=== PATIENT | female | born 1935 | race Caucasian/White ===

== ENCOUNTER 2020-07-16 10:14 | Observation (INO) | payer OTHER, SELFPAY ==
[~2020-07-16] VITALS: Ht 154.9 cm; Wt 49.4 kg
[2020-07-16 10:17] VITALS: BP_SYST 141
[2020-07-16 10:40] LABS: BASOPHILS # (AUTO) 0.1 K/uL (0.0-0.2); BASOPHILS % (AUTO) 0.5 % (0.0-2.0); EOSINOPHILS # (AUTO) 0.1 K/uL (0.0-0.4); HEMATOCRIT 34.1 % (36-48); HEMOGLOBIN 11.5 g/dL (12.0-16.0); LYMPHOCYTES # (AUTO) 1.5 K/uL (1.0-5.5); LYMPHOCYTES % (AUTO) 13.5 % (20.5-51.5); MEAN CORPUSCULAR HEMOGLOBIN 34 pg (27-31); MEAN CORPUSCULAR HGB CONC 34 % (32-36); MEAN CORPUSCULAR VOLUME 101 fL (79.0-98.0); MONOCYTES # (AUTO) 1.4 K/uL (0.0-1.0); MONOCYTES % (AUTO) 12.2 % (1.7-9.3); NEUTROPHILS # (AUTO) 8.1 K/uL (1.8-7.7); NEUTROPHILS % (AUTO) 72.8 % (40.0-70.0); PLATELET COUNT (AUTO) 195 K/uL (130-430); RED BLOOD CELL COUNT(AUTO) 3.38 MIL/uL (4.2-6.2); RED CELL DISTRIBUTION WIDTH 14.1 % (9.0-15.0); WHITE BLOOD COUNT (AUTO) 11.1 K/uL (4.8-10.8)
[2020-07-16 11:04] LABS: ANION GAP 5 (5-15); CALCIUM 8.8 mg/dL (8.4-11.0); CHLORIDE 99 mmol/L (98-107); CREATININE 1.07 mg/dL (0.55-1.30); GLUCOSE 159 mg/dL (70-99); POTASSIUM 4.6 mmol/L (3.5-5.1); SODIUM SERUM 132 mmol/L (136-145); UREA NITROGEN, BLOOD 42 mg/dL (8-21)
[2020-07-16 11:10] LABS: ALANINE AMINOTRANSFERASE 27 U/L (12-78); ALBUMIN 3.6 g/dL (3.4-4.8); ASPARTATE AMINOTRANSFERASE 30 U/L (10-37); TOTAL BILIRUBIN 1.2 mg/dL (0.0-1.0)
[2020-07-16 11:22] LABS: INR 1.1 (0.8-1.2); PROTHROMBIN TIME 10.9 SECS (9.5-12.5)
[2020-07-16 12:07] LABS: BILIRUBIN,URINE NEGATIVE (NEGATIVE); CLARITY/URINE CLEAR (CLEAR); COLOR,URINE YELLOW (YELLOW); GLUCOSE,URINE NEGATIVE (NEGATIVE); KETONES,URINE NEGATIVE (NEGATIVE); LEUKOCYTE ESTERASE ,URINE 1+ (NEGATIVE); NITRITE, URINE POSITIVE (NEGATIVE); PH,URINE 5.5 (5.0-8.0); PROTEIN URINE NEGATIVE (NEGATIVE); UROBILINOGEN,URINE 0.2 (0.2-1.0)
[2020-07-16 12:09] LABS: BLOOD, URINE TRACE (NEGATIVE)
[2020-07-16] MEDS ORDERED: cefTRIAXone 1 GM in D5W 50 ML IV ONE (12:15)
[2020-07-16 12:22] LABS: BACTERIA,URINE FEW /HPF (None Seen); MUCUS,URINE 1+ /LPF (None Seen)
[2020-07-16] MEDS ORDERED: cefTRIAXone 1 GM VIAL ONE ×2 (12:39)
[2020-07-16] MEDS ORDERED: CEL20 PO (13:24)
[2020-07-16] MEDS ORDERED: APIX2.5T PO (13:24)
[2020-07-16] MEDS ORDERED: MEMA10TA56 PO (13:24)
[2020-07-16] MEDS ORDERED: LEVO75TA7 PO (13:24)
[2020-07-16] MEDS ORDERED: LISI-600 PO (13:24)
[2020-07-16] MEDS ORDERED: GLU500 PO (13:24)
[2020-07-16] MEDS ORDERED: METO-442 PO (13:24)
[2020-07-16 13:50] VITALS: BP_SYST 125
[2020-07-16] MEDS ORDERED: FLU VACC QS2020-21(65UP)/PF 0.7 ML/SYRINGE I.M. PRN (14:15)
[2020-07-16 16:00] VITALS: BP_SYST 111
[2020-07-16] MEDS ORDERED: INSULIN REGULAR, HUMAN 100 UNITS/ML, 10 ML VIAL (humuLIN R) SUBCUT PRN (19:00)
[2020-07-16] MEDS ORDERED: DEXTROSE 50% JECT 50 ML DISP.SYRIN IVP PRN (19:00)
[2020-07-17] VITALS: BP_SYST 111
[2020-07-17] MEDS ORDERED: LEVOTHYROXINE SODIUM 0.075 MG TABLET PO SCH (06:00)
[2020-07-17 08:25] VITALS: BP_SYST 128
[2020-07-17] MEDS: metFORMIN HCL 500 MG TABLET PO SCH ×2 (08:26→18:38)
[2020-07-17] MEDS ORDERED: METOPROLOL TARTRATE 50 MG TABLET PO SCH (09:00)
[2020-07-17] MEDS ORDERED: CITALOPRAM HYDROBROMIDE 20 MG TABLET PO SCH (09:00)
[2020-07-17] MEDS ORDERED: lisinopriL 20 MG TABLET PO SCH (09:00)
[2020-07-17 12:18] VITALS: BP_SYST 109
[2020-07-17] MEDS ORDERED: HYDROcodone/ACETAMIN 5-325 MG TAB (NORCO/ VICODIN) PO PRN ×2 (15:30)
[2020-07-17 16:05] VITALS: BP_SYST 121
[2020-07-17 18:20] VITALS: BP_SYST 121
== END 2020-07-17 20:20 ==
LOC: SED 10:14 → STU 12:16
PROVIDERS: ADMIT Internal Medicine Hospice and Palliative Medicine; ATTEND Internal Medicine Hospice and Palliative Medicine
DX: S72.111A Displaced fracture of greater trochanter of right femur, initial encounter for closed fracture (principal); Z20.828 Contact with and (suspected) exposure to other viral communicable diseases; N39.0 Urinary tract infection, site not specified; E11.9 Type 2 diabetes mellitus without complications; I10 Essential (primary) hypertension; E03.9 Hypothyroidism, unspecified; I48.91 Unspecified atrial fibrillation; F03.90 Unspecified dementia, unspecified severity, without behavioral disturbance, psychotic disturbance, mood disturbance, and anxiety; R29.6 Repeated falls; W18.30XA Fall on same level, unspecified, initial encounter; Y93.89 Activity, other specified; Y92.89 Other specified places as the place of occurrence of the external cause; Z79.899 Other long term (current) drug therapy; Z86.73 Personal history of transient ischemic attack (TIA), and cerebral infarction without residual deficits; Z23 Encounter for immunization
CPT/HCPCS: 36415; 71045; 72192; 73502; 73564; 76376; 80053; 81000; 82962; 84484; 85025; 85610; 87040; 87086; 87426; 90471; 90662; 93005; 93306; 96365; 97112; 97163; 99285; G0378; J0696; J1815

== ENCOUNTER 2022-02-25 16:42 | Emergency (ER) | payer OTHER ==
[~2022-02-25] VITALS: Ht 152.4 cm; Wt 44.5 kg
[~2022-02-25 16:42] MED LIST: APIX2.5T PO; CEL20 PO; GLU500 PO; LEVO75TA7 PO; LISI20TA30 PO; MEMA10TA56 PO; METO-442 PO
[2022-02-25 17:40] VITALS: BP_SYST 140
--- NOTE | 2022-02-25 17:50 | NUR ---
RECEIVED PT AAOX4, TOGOLESE SPEAKING, DAUGHTER AT BEDSIDE. PT HAS R HEAD WOUND OPEN WITH DRY BLOOD. PT DENIES H/A. PERRLA, NEURO CKS NEGATIVE. RESP E/U. LUNG SOUNDS CTA. NO R/A. NO COUGH OR SOB NOTED. ABDOMEN SOFT, NONTENDER, NONDISTENDED. BOWEL SOUNDS ACTIVE X4, DENIES N/V/D/C. SKIN WARM, NO EDEMA. KATHIA PAIN.
--- NOTE | 2022-02-25 18:15 | NUR ---
HEAD WOUND CLEANSED WITH NS, PATTED DRY. DR. PATTEN PLACE 3 MAHI TO SITE. PT HEAD COVERED WITH ABDAPTIC AND TUBULAR KERLIX. SITE CDI.
--- NOTE | 2022-02-25 19:29 | NUR ---
ALL CARE ENDORSED TO GARY CASTRO. ALL QUESTIONS AND CONCERNS ADDRESSED.
--- NOTE | 2022-02-25 19:29 | NUR ---
Recieved report from Constance RN Pt AOX4 VSS Able to make needs known Will continue to monitor
[2022-02-25 20:17] VITALS: BP_SYST 135
== END 2022-02-25 20:16 | disposition home or self-care (01) ==
LOC: SED 16:42
DX: S01.01XA Laceration without foreign body of scalp, initial encounter (principal); I48.20 Chronic atrial fibrillation, unspecified; Z79.899 Other long term (current) drug therapy; W01.0XXA Fall on same level from slipping, tripping and stumbling without subsequent striking against object, initial encounter; Y93.89 Activity, other specified; Y92.89 Other specified places as the place of occurrence of the external cause; Y99.8 Other external cause status
CPT/HCPCS: 70450-TC; 72125-TC; 72192-TC; 76376; 99284

== ENCOUNTER 2023-01-12 08:49 | Inpatient (IN) | payer OTHER ==
[~2023-01-12] VITALS: Ht 152.4 cm; Wt 50.8 kg
[2023-01-12 08:52] VITALS: BP_SYST 52
[2023-01-12 09:35] LABS: BASOPHILS # (AUTO) 0.1 K/uL (0.0-0.2); BASOPHILS % (AUTO) 1.5 % (0.0-2.0); EOSINOPHILS # (AUTO) 0.2 K/uL (0.0-0.4); EOSINOPHILS % (AUTO) 3.4 % (0.0-4.0); HEMATOCRIT 37.6 % (36-48); HEMOGLOBIN 12.1 g/dL (12.0-16.0); LYMPHOCYTES # (AUTO) 1.1 K/uL (1.0-5.5); LYMPHOCYTES % (AUTO) 16.9 % (20.5-51.5); MEAN CORPUSCULAR HEMOGLOBIN 28 pg (27-31); MEAN CORPUSCULAR HGB CONC 32 % (32-36); MEAN CORPUSCULAR VOLUME 88 fL (79.0-98.0); MONOCYTES # (AUTO) 0.7 K/uL (0.0-1.0); MONOCYTES % (AUTO) 10.6 % (1.7-9.3); NEUTROPHILS # (AUTO) 4.4 K/uL (1.8-7.7); NEUTROPHILS % (AUTO) 67.6 % (40.0-70.0); PLATELET COUNT (AUTO) 258 K/uL (130-430); RED BLOOD CELL COUNT(AUTO) 4.26 MIL/uL (4.2-6.2); RED CELL DISTRIBUTION WIDTH 18.9 % (9.0-15.0); WHITE BLOOD COUNT (AUTO) 6.5 K/uL (4.8-10.8)
[2023-01-12 09:38] LABS: ANION GAP 11 (5-15); CALCIUM 8.8 mg/dL (8.4-11.0); CHLORIDE 101 mmol/L (98-107); GLUCOSE 129 mg/dL (70-99); UREA NITROGEN, BLOOD 39 mg/dL (8-21)
[2023-01-12 09:45] LABS: ALANINE AMINOTRANSFERASE 15 U/L (12-78); ALBUMIN 3.9 g/dL (3.4-4.8); ASPARTATE AMINOTRANSFERASE 23 U/L (10-37); TOTAL BILIRUBIN 0.8 mg/dL (0.0-1.0)
[2023-01-12] MEDS ORDERED: NACL 0.9% 1,000 ML IV ONE (10:15)
[2023-01-12 10:58] LABS: BILIRUBIN,URINE NEGATIVE (NEGATIVE); BLOOD, URINE NEGATIVE (NEGATIVE); CLARITY/URINE CLEAR (CLEAR); COLOR,URINE YELLOW (YELLOW); GLUCOSE,URINE NEGATIVE (NEGATIVE); KETONES,URINE NEGATIVE (NEGATIVE); LEUKOCYTE ESTERASE ,URINE NEGATIVE (NEGATIVE); NITRITE, URINE NEGATIVE (NEGATIVE); PH,URINE 6.5 (5.0-8.0); PROTEIN URINE NEGATIVE (NEGATIVE); UROBILINOGEN,URINE 0.2 (0.2-1.0)
[2023-01-12] MEDS ORDERED: ASPIRIN 325 MG TABLET PO ONE (11:15)
[2023-01-12] MEDS ORDERED: TRAM50TA2 (11:36)
[2023-01-12] MEDS ORDERED: MIRT7.5T11 (11:36)
[2023-01-12] MEDS ORDERED: iohexoL 350 mgI/mL, 100 ML INFUS..BTL IV ONE (12:58)
[2023-01-12] MEDS ORDERED: LORazepam 2 MG/ML VIAL IVP ONE (13:15)
[2023-01-12 16:20] VITALS: BP_SYST 151
[2023-01-12 20:00] VITALS: BP_SYST 139
[2023-01-12] MEDS: APIXABAN 2.5 MG TABLET PO SCH (21:09)
[2023-01-12] MEDS: traMADol HCL HCL 50 MG TABLET (ULTRAM) PO PRN (22:27)
[2023-01-13 00:53] VITALS: BP_SYST 124
[2023-01-13] MEDS ORDERED: QUEtiapine FUMARATE 25 MG TABLET PO ONE (01:00)
[2023-01-13 03:30] LABS: BILIRUBIN,URINE NEGATIVE (NEGATIVE); BLOOD, URINE NEGATIVE (NEGATIVE); CLARITY/URINE CLEAR (CLEAR); COLOR,URINE YELLOW (YELLOW); GLUCOSE,URINE NEGATIVE (NEGATIVE); KETONES,URINE TRACE (NEGATIVE); LEUKOCYTE ESTERASE ,URINE NEGATIVE (NEGATIVE); NITRITE, URINE NEGATIVE (NEGATIVE); PH,URINE 6.5 (5.0-8.0); PROTEIN URINE NEGATIVE (NEGATIVE); UROBILINOGEN,URINE 0.2 (0.2-1.0)
[2023-01-13 04:18] VITALS: BP_SYST 139
[2023-01-13] MEDS: LEVOTHYROXINE SODIUM 0.075 MG TABLET PO SCH (06:07)
[2023-01-13 06:53] LABS: BASOPHILS % (AUTO) 0.5 % (0.0-2.0); EOSINOPHILS # (AUTO) 0.2 K/uL (0.0-0.4); EOSINOPHILS % (AUTO) 1.8 % (0.0-4.0); HEMATOCRIT 36.7 % (36-48); HEMOGLOBIN 11.6 g/dL (12.0-16.0); LYMPHOCYTES # (AUTO) 1.2 K/uL (1.0-5.5); LYMPHOCYTES % (AUTO) 11.8 % (20.5-51.5); MEAN CORPUSCULAR HEMOGLOBIN 28 pg (27-31); MEAN CORPUSCULAR HGB CONC 32 % (32-36); MEAN CORPUSCULAR VOLUME 88 fL (79.0-98.0); MONOCYTES # (AUTO) 1.1 K/uL (0.0-1.0); MONOCYTES % (AUTO) 10.8 % (1.7-9.3); NEUTROPHILS # (AUTO) 7.4 K/uL (1.8-7.7); NEUTROPHILS % (AUTO) 75.1 % (40.0-70.0); PLATELET COUNT (AUTO) 248 K/uL (130-430); RED BLOOD CELL COUNT(AUTO) 4.19 MIL/uL (4.2-6.2); RED CELL DISTRIBUTION WIDTH 18.8 % (9.0-15.0); WHITE BLOOD COUNT (AUTO) 9.8 K/uL (4.8-10.8)
[2023-01-13 07:33] VITALS: BP_SYST 118
[2023-01-13] MEDS: APIXABAN 2.5 MG TABLET PO SCH ×2 (08:52→20:18)
[2023-01-13] MEDS: MEMANTINE HCL 5 MG TABLET PO SCH (08:53)
[2023-01-13] MEDS: METOPROLOL TARTRATE 50 MG TABLET PO SCH (08:53)
[2023-01-13 09:26] LABS: CHOLESTEROL 156 mg/dL (<200); HDL CHOLESTEROL 62 mg/dL (>55); TRIGLYCERIDES 98 mg/dL (30-150)
[2023-01-13 11:29] VITALS: BP_SYST 98
[2023-01-13] MEDS: D5/0.45 NS 1,000 ML IV SCH (14:24)
[2023-01-13 15:16] VITALS: BP_SYST 126
[2023-01-13 20:00] VITALS: BP_SYST 115
[2023-01-14 00:20] VITALS: BP_SYST 118
[2023-01-14] MEDS: D5/0.45 NS 1,000 ML IV SCH ×3 (02:40→21:01)
[2023-01-14] MEDS: LEVOTHYROXINE SODIUM 0.075 MG TABLET PO SCH (06:14)
[2023-01-14 06:28] LABS: BASOPHILS % (AUTO) 0.5 % (0.0-2.0); EOSINOPHILS # (AUTO) 0.3 K/uL (0.0-0.4); EOSINOPHILS % (AUTO) 3.9 % (0.0-4.0); HEMATOCRIT 36.6 % (36-48); HEMOGLOBIN 11.7 g/dL (12.0-16.0); LYMPHOCYTES # (AUTO) 1.4 K/uL (1.0-5.5); LYMPHOCYTES % (AUTO) 17.9 % (20.5-51.5); MEAN CORPUSCULAR HEMOGLOBIN 28 pg (27-31); MEAN CORPUSCULAR HGB CONC 32 % (32-36); MEAN CORPUSCULAR VOLUME 87 fL (79.0-98.0); MONOCYTES % (AUTO) 12.9 % (1.7-9.3); NEUTROPHILS % (AUTO) 64.8 % (40.0-70.0); PLATELET COUNT (AUTO) 245 K/uL (130-430); RED BLOOD CELL COUNT(AUTO) 4.19 MIL/uL (4.2-6.2); RED CELL DISTRIBUTION WIDTH 18.8 % (9.0-15.0); WHITE BLOOD COUNT (AUTO) 7.7 K/uL (4.8-10.8)
[2023-01-14 06:43] LABS: ANION GAP 9 (5-15); CHLORIDE 105 mmol/L (98-107); CREATININE 0.94 mg/dL (0.55-1.30); GLUCOSE 160 mg/dL (70-99); UREA NITROGEN, BLOOD 22 mg/dL (8-21)
[2023-01-14 08:00] VITALS: BP_SYST 149
[2023-01-14] MEDS: METOPROLOL TARTRATE 50 MG TABLET PO SCH (09:14)
[2023-01-14] MEDS: MEMANTINE HCL 5 MG TABLET PO SCH (09:14)
[2023-01-14] MEDS: APIXABAN 2.5 MG TABLET PO SCH ×2 (09:15→21:02)
[2023-01-14] MEDS: traMADol HCL HCL 50 MG TABLET (ULTRAM) PO PRN (10:49)
[2023-01-14 11:45] VITALS: BP_SYST 98
[2023-01-14 12:00] VITALS: BP_SYST 19
[2023-01-14 14:10] LABS: BASOPHILS # (AUTO) 0.1 K/uL (0.0-0.2); BASOPHILS % (AUTO) 0.6 % (0.0-2.0); EOSINOPHILS % (AUTO) 0.4 % (0.0-4.0); HEMATOCRIT 35.2 % (36-48); HEMOGLOBIN 11.2 g/dL (12.0-16.0); LYMPHOCYTES # (AUTO) 0.6 K/uL (1.0-5.5); LYMPHOCYTES % (AUTO) 5.5 % (20.5-51.5); MEAN CORPUSCULAR HEMOGLOBIN 28 pg (27-31); MEAN CORPUSCULAR HGB CONC 32 % (32-36); MEAN CORPUSCULAR VOLUME 88 fL (79.0-98.0); MONOCYTES # (AUTO) 1.1 K/uL (0.0-1.0); MONOCYTES % (AUTO) 9.9 % (1.7-9.3); NEUTROPHILS # (AUTO) 9.1 K/uL (1.8-7.7); NEUTROPHILS % (AUTO) 83.6 % (40.0-70.0); PLATELET COUNT (AUTO) 234 K/uL (130-430); RED BLOOD CELL COUNT(AUTO) 3.99 MIL/uL (4.2-6.2); RED CELL DISTRIBUTION WIDTH 18.5 % (9.0-15.0); WHITE BLOOD COUNT (AUTO) 10.8 K/uL (4.8-10.8)
[2023-01-14 16:30] VITALS: BP_SYST 100
[2023-01-14 20:00] VITALS: BP_SYST 115
[2023-01-15 00:55] VITALS: BP_SYST 112
[2023-01-15] MEDS: LEVOTHYROXINE SODIUM 0.075 MG TABLET PO SCH (06:31)
[2023-01-15] MEDS: D5/0.45 NS 1,000 ML IV SCH (06:34)
[2023-01-15 06:57] LABS: BASOPHILS % (AUTO) 0.4 % (0.0-2.0); EOSINOPHILS % (AUTO) 0.5 % (0.0-4.0); HEMATOCRIT 32.1 % (36-48); HEMOGLOBIN 10.3 g/dL (12.0-16.0); LYMPHOCYTES # (AUTO) 1.1 K/uL (1.0-5.5); LYMPHOCYTES % (AUTO) 11.5 % (20.5-51.5); MEAN CORPUSCULAR HEMOGLOBIN 28 pg (27-31); MEAN CORPUSCULAR HGB CONC 32 % (32-36); MEAN CORPUSCULAR VOLUME 87 fL (79.0-98.0); MONOCYTES # (AUTO) 1.7 K/uL (0.0-1.0); MONOCYTES % (AUTO) 18.1 % (1.7-9.3); NEUTROPHILS # (AUTO) 6.6 K/uL (1.8-7.7); NEUTROPHILS % (AUTO) 69.5 % (40.0-70.0); PLATELET COUNT (AUTO) 208 K/uL (130-430); RED BLOOD CELL COUNT(AUTO) 3.67 MIL/uL (4.2-6.2); RED CELL DISTRIBUTION WIDTH 18.5 % (9.0-15.0); WHITE BLOOD COUNT (AUTO) 9.5 K/uL (4.8-10.8)
[2023-01-15 07:18] LABS: ANION GAP 9 (5-15); CALCIUM 7.7 mg/dL (8.4-11.0); CHLORIDE 103 mmol/L (98-107); CREATININE 0.91 mg/dL (0.55-1.30); GLUCOSE 206 mg/dL (70-99); UREA NITROGEN, BLOOD 19 mg/dL (8-21)
[2023-01-15 08:25] VITALS: BP_SYST 108
[2023-01-15] MEDS: MEMANTINE HCL 5 MG TABLET PO SCH (08:48)
[2023-01-15] MEDS: APIXABAN 2.5 MG TABLET PO SCH ×2 (08:48→20:40)
[2023-01-15] MEDS: METOPROLOL TARTRATE 50 MG TABLET PO SCH (09:00)
[2023-01-15] MEDS ORDERED: metFORMIN HCL 500 MG TABLET PO ONE (11:30)
[2023-01-15 12:13] VITALS: BP_SYST 106
[2023-01-15 15:56] VITALS: BP_SYST 113
[2023-01-15] MEDS ORDERED: metFORMIN HCL 500 MG TABLET PO SCH (18:00)
[2023-01-15 20:00] VITALS: BP_SYST 112
[2023-01-15] MEDS: MIRTAZAPINE 15 MG TABLET PO SCH (20:39)
[2023-01-16 00:53] VITALS: BP_SYST 125
[2023-01-16] MEDS: LEVOTHYROXINE SODIUM 0.075 MG TABLET PO SCH (06:13)
[2023-01-16 06:39] LABS: BASOPHILS # (AUTO) 0.1 K/uL (0.0-0.2); BASOPHILS % (AUTO) 0.6 % (0.0-2.0); EOSINOPHILS # (AUTO) 0.2 K/uL (0.0-0.4); EOSINOPHILS % (AUTO) 2.5 % (0.0-4.0); HEMATOCRIT 35.2 % (36-48); HEMOGLOBIN 11.3 g/dL (12.0-16.0); LYMPHOCYTES # (AUTO) 1.8 K/uL (1.0-5.5); LYMPHOCYTES % (AUTO) 19.5 % (20.5-51.5); MEAN CORPUSCULAR HEMOGLOBIN 28 pg (27-31); MEAN CORPUSCULAR HGB CONC 32 % (32-36); MEAN CORPUSCULAR VOLUME 87 fL (79.0-98.0); MONOCYTES # (AUTO) 1.5 K/uL (0.0-1.0); MONOCYTES % (AUTO) 17.1 % (1.7-9.3); NEUTROPHILS # (AUTO) 5.5 K/uL (1.8-7.7); NEUTROPHILS % (AUTO) 60.3 % (40.0-70.0); PLATELET COUNT (AUTO) 230 K/uL (130-430); RED BLOOD CELL COUNT(AUTO) 4.03 MIL/uL (4.2-6.2); RED CELL DISTRIBUTION WIDTH 18.9 % (9.0-15.0)
[2023-01-16 06:56] LABS: ANION GAP 10 (5-15); CALCIUM 8.3 mg/dL (8.4-11.0); CHLORIDE 104 mmol/L (98-107); CREATININE 0.93 mg/dL (0.55-1.30); GLUCOSE 137 mg/dL (70-99); UREA NITROGEN, BLOOD 14 mg/dL (8-21)
[2023-01-16] MEDS: APIXABAN 2.5 MG TABLET PO SCH ×2 (08:13→21:47)
[2023-01-16] MEDS: MEMANTINE HCL 5 MG TABLET PO SCH (08:13)
[2023-01-16] MEDS: metFORMIN HCL 500 MG TABLET PO SCH (08:13)
[2023-01-16] MEDS: METOPROLOL TARTRATE 50 MG TABLET PO SCH (08:17)
[2023-01-16 08:21] VITALS: BP_SYST 124
[2023-01-16 11:44] VITALS: BP_SYST 106
[2023-01-16 15:27] VITALS: BP_SYST 102
[2023-01-16 19:00] VITALS: BP_SYST 103
[2023-01-16] MEDS ORDERED: ALPRAZolam 0.25 MG TABLET PO PRN (19:15)
[2023-01-16 20:00] VITALS: BP_SYST 103
[2023-01-16] MEDS: MIRTAZAPINE 15 MG TABLET PO SCH (21:44)
[2023-01-17 00:47] VITALS: BP_SYST 123
[2023-01-17] MEDS: LEVOTHYROXINE SODIUM 0.075 MG TABLET PO SCH (06:16)
[2023-01-17 07:43] VITALS: BP_SYST 135
[2023-01-17 11:24] VITALS: BP_SYST 127
[2023-01-17] MEDS: MEMANTINE HCL 5 MG TABLET PO SCH (12:18)
[2023-01-17] MEDS: APIXABAN 2.5 MG TABLET PO SCH (12:19)
[2023-01-17] MEDS: metFORMIN HCL 500 MG TABLET PO SCH (12:20)
[2023-01-17] MEDS: METOPROLOL TARTRATE 50 MG TABLET PO SCH (12:20)
[2023-01-17 13:14] VITALS: BP_SYST 127
[2023-01-17 15:08] VITALS: BP_SYST 117
== END 2023-01-17 15:30 | DRG 64 ==
LOC: SED 08:49 → STU 13:16
PROVIDERS: ADMIT Specialist; ATTEND Specialist
DX: I63.9 Cerebral infarction, unspecified (principal); G93.41 Metabolic encephalopathy; F03.93 Unspecified dementia, unspecified severity, with mood disturbance; I69.351 Hemiplegia and hemiparesis following cerebral infarction affecting right dominant side; I69.354 Hemiplegia and hemiparesis following cerebral infarction affecting left non-dominant side; E44.1 Mild protein-calorie malnutrition; Z20.822 Contact with and (suspected) exposure to COVID-19; E11.9 Type 2 diabetes mellitus without complications; I10 Essential (primary) hypertension; R29.704 NIHSS score 4; I48.91 Unspecified atrial fibrillation; F32.A Depression, unspecified; R53.81 Other malaise; E03.9 Hypothyroidism, unspecified; Z68.21 Body mass index [BMI] 21.0-21.9, adult
CPT/HCPCS: 36415; 70450-TC; 70496; 70498; 70551; 76376; 80048; 80053; 80061; 81003; 84484; 85025; 92610-GN; 93005; 93306; 96361; 96374; 97110-GP; 97112-GP; 97116-GP; 97163-GP; 97530-GP; 99285; G0378; J2060; Q9967